=== PATIENT | female | born 1960 | race Caucasian/White ===

== ENCOUNTER → 2016-09-16 | Outpatient (CLI) | payer OTHER ==
[~2016-09-16] MED LIST: ACLI400A2 INH; ALBU8.5H5 INH; ALPR-475 PO; ATOR20TA9 PO; FLUT1DIS3 INH; GLIM4TAB PO; INSU100I13 SQ-INSULIN; IPRA3AMP INH; LEVO25TA4 PO; LEVO500T33 PO; LEVO750T26 PO; LINA5TAB PO; LISI-170 PO; METF10002 PO; METO50TA82 PO; NICO1PAT5 TD; PRED10TA PO
== END | disposition home or self-care (01) ==
LOC: CFH 12:36
PROVIDERS: ATTEND Family Medicine
DX: M54.5 Low back pain (principal)
CPT/HCPCS: 72110

== ENCOUNTER 2016-11-28 12:42 | Emergency (ER) | payer MEDICAID, OTHER ==
[~2016-11-28] VITALS: Ht 165.1 cm; Wt 76.5 kg
[~2016-11-28 12:42] MED LIST changes: -LEVO500T33 PO; +LEVO500T47 PO; +NICO-487 TD; -NICO1PAT5 TD
[2016-11-28] MEDS ORDERED: SODIUM CHLORIDE 0.9% 1,000ML IVBOLUS ONE (13:30)
[2016-11-28] MEDS ORDERED: KETOROLAC 30 MG/1 ML IVPush ONE (13:30)
[2016-11-28] MEDS ORDERED: METOCLOPRAMIDE 5 MG/ML, 2ML IVPush ONE (13:30)
[2016-11-28 13:37] LABS: HEMOGLOBIN 12.3 g/dL (11.7-16.4); WHITE BLOOD COUNT 6.9 x10^3/uL (3.4-10)
[2016-11-28] MEDS ORDERED: KETOROLAC 30 MG/1 ML ONE (13:41)
[2016-11-28] MEDS ORDERED: METOCLOPRAMIDE 5 MG/ML, 2ML ONE (13:41)
[2016-11-28 13:49] LABS: ASPARTATE AMINO TRANSFERASE 16 U/L (15-37); BLOOD UREA NITROGEN 26 mg/dL (7-18)
[2016-11-28 13:49] LABS: PATH.CAST-FLAG NOT PRESENT; SPERM-FLAG NOT PRESENT; SRC-FLAG NOT PRESENT; XTAL-FLAG NOT PRESENT; YLC-FLAG NOT PRESENT
[2016-11-28 13:55] LABS: IS PT STATUS REG ER OR PRE ER? YES
[2016-11-28 16:38] LABS: IS PT STATUS REG ER OR PRE ER? YES
[2016-11-28 17:22] VITALS: BP 175/79
== END 2016-11-28 17:36 | disposition home or self-care (01) ==
LOC: ED 17:30
DX: R07.9 Chest pain, unspecified (principal); R06.02 Shortness of breath; R11.0 Nausea; E11.65 Type 2 diabetes mellitus with hyperglycemia; E78.5 Hyperlipidemia, unspecified; I10 Essential (primary) hypertension
CPT/HCPCS: 36415; 70450; 71010; 80053; 81001; 84443; 84484; 85025; 87077; 87086; 87186; 93005; 96361; 96374; 96375; 99285; J1885; J2765; J7030